=== PATIENT | female | born 1965 | race Caucasian/White ===

== ENCOUNTER 2020-12-16 15:43 | Observation (INO) ==
[2020-12-16 17:18] LABS: Basophils # 0.1 K/mcL (0.0-0.2); Basophils % 0.5 %; Eosinophils # 0.1 K/mcL (0.0-0.6); Eosinophils % 1.2 %; Hematocrit 41.3 % (35.3-44.9); Immature Granulocytes % 0.4 % (0-4); Lymphocytes # 1.8 K/mcL (0.6-4.6); Lymphocytes % 17.8 %; Mean Corpuscular HGB Conc 33.9 g/dL (31.6-35.5); Mean Corpuscular Hemoglobin 32.9 pg (28.0-33.3); Mean Corpuscular Volume 97.2 fL (83.0-100.0); Mean Platelet Volume 8.7 fL (9.4-12.4); Monocytes # 0.9 K/mcL (0.0-1.3); Monocytes % 9.3 %; Neutrophils # 7.1 K/mcL (1.6-8.9); Platelet Count 317 K/mcL (140-400); Red Blood Count 4.25 M/mcL (3.82-4.97); Red Cell Distribution Width 11.6 % (11.5-14.5); Segmented Neutrophils % 70.8 %
[2020-12-16 17:25] LABS: INR 1.1; Prothrombin Time 12.8 Seconds (9.4-12.1)
[2020-12-16 17:40] LABS: BUN/Creatinine Ratio 22 (6-26); Blood Urea Nitrogen 17 mg/dL (6-20); Calcium 9.6 mg/dL (8.6-10.3); Carbon Dioxide 28 mEq/L (23-29); Chloride 100 mEq/L (98-107); Glucose 100 mg/dL (70-105); Osmolality,Calculated 282 (280-300); Potassium 3.6 mEq/L (3.5-5.1); Sodium 135 mEq/L (136-145); eGFR For African Americans > 60 (> 60); eGFR For Non-African Americans > 60 (> 60)
[2020-12-16] MEDS ORDERED: Morphine Sulfate 2 MG/ML SYRINGE IVP ONE (17:57)
[2020-12-16] MEDS ORDERED: Ondansetron 4 MG/2 ML VIAL IVP ONE (17:59)
[2020-12-16] MEDS ORDERED: Naloxone 0.4 MG/ML INJ IVP PRN (18:16)
[2020-12-16] MEDS ORDERED: Melatonin 3 MG TABLET PO PRN (18:16)
[2020-12-16] MEDS ORDERED: *HR* Heparin 5,000 UNIT/ML VIAL IVP PRN ×3 (18:18→18:26)
[2020-12-16] MEDS ORDERED: *HR* Heparin 5,000 UNIT/ML VIAL IVP ONE ×2 (18:18→18:26)
[2020-12-16] MEDS ORDERED: Heparin 25,000UNIT/250ML 1/2NS 25,000 UNIT/250 ML IV.SOLN IVC SCH (18:30)
[2020-12-16 18:32] LABS: Heparin anti-factor XA UFH 0.32 IU/mL (0.30-0.70)
[2020-12-16] MEDS ORDERED: *HR* HYDROmorphone (PF) 1 MG/ML SYRINGE IVP ONE (18:56)
[2020-12-16] MEDS: Heparin 25,000UNIT/250ML 1/2NS 25,000 UNIT/250 ML IV.SOLN IVC SCH (19:07)
[2020-12-16] MEDS ORDERED: Acetaminophen 325 MG TABLET PO PRN (19:15)
[2020-12-16 20:26] LABS: Hematocrit 39.9 % (35.3-44.9); Hemoglobin 13.5 g/dL (11.5-15.4); Mean Corpuscular HGB Conc 33.8 g/dL (31.6-35.5); Mean Corpuscular Hemoglobin 32.8 pg (28.0-33.3); Mean Corpuscular Volume 97.1 fL (83.0-100.0); Platelet Count 321 K/mcL (140-400); Red Blood Count 4.11 M/mcL (3.82-4.97); Red Cell Distribution Width 11.6 % (11.5-14.5); White Blood Count 10.3 K/mcL (4.3-11.1)
[2020-12-16] MEDS: *HR* OxyCODONE Immed Rel 5 MG TABLET PO PRN (21:32)
[2020-12-16] MEDS ORDERED: Ketorolac 15 MG/ML VIAL IVP ONE (23:14)
[2020-12-17] MEDS ORDERED: Ketorolac 15 MG/ML VIAL IVP ONE (05:49)
[2020-12-17 06:54] LABS: Hematocrit 37.2 % (35.3-44.9); Hemoglobin 12.8 g/dL (11.5-15.4); Mean Corpuscular HGB Conc 34.4 g/dL (31.6-35.5); Mean Corpuscular Hemoglobin 33.6 pg (28.0-33.3); Mean Corpuscular Volume 97.6 fL (83.0-100.0); Platelet Count 299 K/mcL (140-400); Red Blood Count 3.81 M/mcL (3.82-4.97); Red Cell Distribution Width 11.7 % (11.5-14.5); White Blood Count 8.1 K/mcL (4.3-11.1)
[2020-12-17 07:13] LABS: BUN/Creatinine Ratio 20 (6-26); Blood Urea Nitrogen 16 mg/dL (6-20); Carbon Dioxide 28 mEq/L (23-29); Chloride 97 mEq/L (98-107); Glucose 91 mg/dL (70-105); Osmolality,Calculated 275 (280-300); Potassium 3.7 mEq/L (3.5-5.1); Sodium 132 mEq/L (136-145); eGFR For African Americans > 60 (> 60); eGFR For Non-African Americans > 60 (> 60)
[2020-12-17] MEDS: *HR* OxyCODONE Immed Rel 5 MG TABLET PO PRN ×3 (07:31→21:43)
[2020-12-17] MEDS: *HR* Heparin 5,000 UNIT/ML VIAL IVP PRN ×2 (07:41→14:18)
[2020-12-17] MEDS ORDERED: *HR* OxyCODONE Immed Rel 5 MG TABLET PO PRN (10:55)
[2020-12-17 14:04] LABS: Activated Partial Thrombo Time 56.9 Seconds (26.0-36.0)
[2020-12-17 14:47] LABS: D-Dimer < 215 ng/mLFEU (0-500)
[2020-12-18] MEDS: Heparin 25,000UNIT/250ML 1/2NS 25,000 UNIT/250 ML IV.SOLN IVC SCH (03:11)
[2020-12-18] MEDS: *HR* OxyCODONE Immed Rel 5 MG TABLET PO PRN ×3 (03:14→12:30)
[2020-12-18 08:26] VITALS: BP 118/80; PULSE 86; TEMP 98.7; O2SAT 95
[2020-12-18] MEDS ORDERED: Apixaban 5 MG TABLET PO SCH (09:00)
[2020-12-18] MEDS ORDERED: *HR* Dabigatran 150 MG CAPSULE PO SCH (09:00)
== END 2020-12-18 12:38 | disposition home or self-care (01) ==
LOC: 3BNU 15:43 → EMEROOARM 15:43 → SUATTDRO 18:28 → 3BNU 19:48
PROVIDERS: ADMIT Student in an Organized Health Care Education/Training Program; ATTEND Internal Medicine